=== PATIENT | female | born 1960 | race Caucasian/White ===

== ENCOUNTER 2023-10-20 14:43 | Emergency (ER) | payer MEDICARE, SELFPAY ==
[2023-10-20 14:45] VITALS: PULSE 76; RESP 18; TEMP 36.3; O2SAT 98; BMI 25.2
--- NOTE | 2023-10-20 15:54 | RAD_ITS ---
STUDY: X-RAY - RIGHT SHOULDER REASON FOR EXAM: Female, 63 years old. INJURY TECHNIQUE: 4 view(s) of the shoulder. COMPARISON: None. FINDINGS: Normal glenohumeral articulation. There is widening of the acromioclavicular joint to approximately 1.5 cm. This suggests AC joint disruption unless there has been previous surgery. Normal acromion. Normal humeral head and visualized proximal humerus. There is periarticular soft tissue calcification consistent with a calcific tendinitis. Normal visualized pulmonary apex. RAD/Shoulder min 2 Views IMPRESSION: Suggestion of AC joint disruption unless there has been previous surgery. Electronically Signed: Hayes Mancini MD at 16:05 EST ,
--- NOTE | 2023-10-20 16:31 | EDS_ITS ---
HPI History of Present Illness Chief Complaint: Upper Extremity Injury Informant: patient Onset/Context/Timing Onset: Weeks Narrative Narrative: Patient presents secondary to right shoulder pain. She fell 2 weeks ago landing on her right shoulder. She has had decreased range of motion and pain since that time. Today she bumped into a door frame and caused increased pain. She is right-hand dominant. She has had prior rotator cuff surgery on that shoulder. [facility] Medical History Anxiety Depression Diabetes Allergy/AdvReac Type Severity Reaction Status Date / Time morphine AdvReac Mild Itching Verified 10/20/23 14:45 Sulfa (Sulfonamide AdvReac Mild Rash Verified 10/20/23 14:45 Antibiotics) Family History no significant family his Surgical History H/O rotator cuff surgery Social History housing: house Smoking Status: Unknown if ever smoked ROS ROS ED Constitutional Constitutional ED: Denies chills or fever(s) ENT ENT ED: Denies rhinorrhea or sore throat Cardiovascular Cardiovascular: Denies chest pain or palpitations Respiratory/Chest Respiratory/Chest: Denies cough or dyspnea Gastrointestinal Gastrointestinal: Denies abdominal pain, nausea or vomiting Genitourinary Genitourinary ED: Denies dysuria Musculoskeletal Musculoskeletal: Reports extremity pain; Denies back pain Integumentary Denies Abrasions or rash Neurologic Neurologic: Denies headache(s) or weakness Psychiatric Psychiatric: Denies anxiety or depression Allergic/Immunologic Allergic/Immunologic ED: Denies lip swelling or urticaria EXAM Physical Exam Const Vital Signs: 10/20/23 14:45 Temperature 97.3 F L Temperature Source Temporal Pulse Rate 76 Respiratory Rate 18 Pulse Ox 98 Positive well nourished and well developed General Appearance ED: well developed HEENT Reports moist mucous membranes Neck full ROM Chest Wall inspection of chest normal and palpation of chest normal Resp normal respiratory effort and clear to auscultation bilaterally Cardio regular rate and regular rhythm GI non-tender Palpation: soft Extremity Extremity Narrative: Decreased range of motion right upper extremity. Patient has difficulty with abduction and any arm elevation over her head. With her shoulder in neutral position with her elbow at her side she is able to flex and extend her elbow without difficulty. She is strong distal pulses and normal sensation. Neuro oriented x3 Psych mental status grossly normal MDM MDM MDM Narrative Medical decision making narrative: Right shoulder x-rays were obtained per nursing protocol. Per my interpretation no evidence of fracture or dislocation. Radiology interpretation is reviewed. They feel there is a possible AC joint disruption unless there has been previous surgery. Patient has no focal tenderness to palpation over this area and has had prior shoulder surgery. Given her exam I am more concerned for rotator cuff injury which she was advised we could not see on an x-ray. She wishes to follow-up with her orthopedic doctor and Eugenie. We will give her a sling. She will continue working on exercises to keep her shoulder mobile. Return instructions given. Radiography Diagnostic Testing: Clinical Impression(s) from Imaging Studies Shoulder X-Ray 10/20/23 15:54 IMPRESSION: Suggestion of AC joint disruption unless there has been previous surgery. Electronically Signed: Hayes Mancini MD at 16:05 EST , Discharge Plan Triage Chief Complaint: Upper Extremity Injury ED Provider: Cora Adorno Dx/Rx/DC Orders Clinical Impression: Sprain of right shoulder Instructions: ED Shoulder Sprain Primary Care Provider: Surjit Heredia Referrals: Surjit Heredia MD [Primary Care Provider] - Activity Restrictions/Additional Instructions: Follow-up with your orthopedic doctor and Eugenie as discussed. Disposition Disposition: Home, Self Care
[2023-10-20 16:33] VITALS: PULSE 66; RESP 16
--- OUTSIDE RECORDS SUMMARY | 2023-10-20 17:10 | XMS RPT_ITS | CCD ---
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 Name Role Phone FAIRCHILD, COURTNEY E Unavailable Unavailable FAIRCHILD, COURTNEY E Unavailable Unavailable FAIRCHILD COURTNEY E Unavailable Unavailable JESENIA CHRISTENSEN Primary Care Unavailable GABRIELA MYLES Attending Unavailable Heredia, Reilly Primary Care Provider [phone] Reilly Heredia MD Primary Care Provider [phone] Reilly Heredia MD Primary Care Provider Reilly Heredia MD Primary Care Provider [phone] HEREDIA, REILLY Primary Care Unavailable DANIELLE CASE WORKER, KENDRICK Attending Unavailable DANIELLE CASE WORKER, KENDRICK Attending Unavailable HEREDIA, REILLY Primary Care Unavailable DANIELLE CASE WORKER, KENDRICK Attending Unavailable HEREDIA, REILLY Primary Care Unavailable HEREDIA, REILLY Primary Care Unavailable DANIELLE CASE WORKER, KENDRICK Attending Unavailable HEREDIA, REILLY Primary Care Unavailable DANIELLE CASE WORKER, KENDRICK Attending Unavailable Reilly Heredia MD Primary Care Provider [phone] KYLIE PAULINO Attending Unavailable HEREDIA, REILLY Primary Care Unavailable FERNANDO VO Attending Unavailable KYLIE PAULINO Attending Unavailable HEREDIA, REILLY Primary Care Unavailable Allergies Allergy Classification Reported Allergen(s) Allergy Type Date of Onset Reaction(s) Facility (13 sources) acetaminophen / HYDROcodone; Translations: [HYDROCODONE-ACET AMINOPHEN] Drug Allergy 04-13-20 11 Rash [facility] Repository (13 sources) morphine; Translations: [MORPHINE] Drug Allergy 04-13-20 11 Hives, Itching [facility] Repository (2 sources) Sulfonamides (Antibiotic); Translations: [SULFA (SULFONAMIDE ANTIBIOTICS)] Propensity to adverse reactions to drug (disorder) 12-22-20 11 [facility] [place] Repository (3 sources) Sulfonamides (Antibiotic) Propensity to adverse reactions to drug 06-13-20 15 [facility] [place] [place] (9 sources) Codeine Drug Allergy 08-28-20 21 [place] [facility] Work Phone: (8 sources) Sulfonamides (Antibiotic) Drug Intolerance 09-16-20 11 [facility] Medications Current Medications Medication Drug Class(es) Dates Sig (Normalized) Sig (Original) [id number] 200 actuat albuterol 0.09 mg/actuat metered dose inhaler (11 sources) beta2-Adrenergic Agonist Start: 02-15-2023 take 2 puff(s) by inhalation every six hours as needed for wheezing albuterol 108 (90 Base) MCG/ACT inhaler Indications: Bronchitis Inhale 2 puffs every 6 hours as needed for wheezing. 18 g 1 02/15/2023 Active Problems Active Problems Problem Classification Problem Date Documented Date Episodic/Chronic Anxiety disorders (11 sources) Generalized anxiety disorder; Translations: [Generalized anxiety disorder] Onset: 03-11-2015 03-11-2015 Chronic Chronic obstructive pulmonary disease and bronchiectasis (13 sources) Simple chronic bronchitis; Translations: [Simple chronic bronchitis] Onset: 07-20-2020 12-24-2020 Chronic Diabetes mellitus with complications (14 sources) Type 2 diabetes mellitus in obese; Translations: [Type 2 diabetes mellitus with other specified complication] Onset: 06-13-2015 06-19-2018 Chronic Diabetes mellitus without complication (18 sources) Type 2 diabetes mellitus; Translations: [Type II or unspecified type diabetes mellitus without mention of complication, uncontrolled] Onset: 03-11-2015 Resolved: 08-31-2016 03-11-2015 Chronic Disorders of lipid metabolism (17 sources) Hyperlipidemia; Translations: [Mixed hyperlipidemia] Onset: 03-11-2015 Resolved: 08-31-2016 08-31-2016 Chronic Esophageal disorders (10 sources) Gastroesophageal reflux disease without esophagitis; Translations: [Gastro-esophageal reflux disease without esophagitis] Onset: 01-04-2020 01-04-2020 Chronic Medical examination/evaluatio n (1 source) Encounter for other preprocedural examination; Translations: [Encounter for other preprocedural examination] Onset: 12-30-2017 Episodic Mood disorders (20 sources) Moderate major depression ; Translations: [Bipolar disorder] Onset: 03-11-2015 Resolved: 08-31-2016 06-19-2018 Chronic Other bone disease and musculoskeletal deformities (1 source) Disorder of bone; Translations: [Disorder of bone] Episodic Other endocrine disorders (4 sources) Mass of left adrenal gland; Translations: [Other specified disorders of adrenal gland] Onset: 01-18-2019 01-18-2019 Chronic Other endocrine disorders (2 sources) Other specified disorders of adrenal gland; Translations: [Other specified disorders of adrenal gland (HCC)] Onset: 07-12-2022 Chronic Other endocrine disorders (1 source) Mass of left adrenal gland; Translations: [Left adrenal mass] Onset: 01-18-2019 01-18-2019 Other liver diseases (11 sources) Steatosis of liver; Translations: [Fatty (change of) liver, not elsewhere classified] Onset: 06-13-2015 06-13-2015 Chronic Other liver diseases (3 sources) Chronic nonalcoholic liver disease; Translations: [Other specified diseases of liver] Onset: 03-11-2015 Resolved: 08-31-2016 08-31-2016 Chronic Other nervous system disorders (10 sources) Bilateral carpal tunnel syndrome; Translations: [Carpal tunnel syndrome, bilateral upper limbs] Onset: 09-08-2018 09-08-2018 Chronic Other nervous system disorders (1 source) Bilateral carpal tunnel syndrome; Translations: [Bilateral carpal tunnel syndrome] Onset: 09-08-2018 09-08-2018 Other nutritional; endocrine; and metabolic disorders (5 sources) Obesity; Translations: [Other obesity due to excess calories] Onset: 01-04-2020 01-04-2020 Chronic Other nutritional; endocrine; and metabolic disorders (5 sources) Obesity caused by energy imbalance; Translations: [Other obesity due to excess calories] Onset: 01-04-2020 07-12-2022 Chronic Other nutritional; endocrine; and metabolic disorders (2 sources) Obesity, unspecified; Translations: [Obesity, unspecified] Onset: 07-12-2022 Chronic Other screening for suspected conditions (not mental disorders or infectious disease) (1 source) Imaging of thorax abnormal; Translations: [Abnormal findings on diagnostic imaging of other specified body structures] Chronic Other skin disorders (1 source) Localized swelling, mass and lump, trunk; Translations: [Localized swelling, mass and lump, trunk] Onset: 01-10-2018 Episodic Residual codes; unclassified (12 sources) Tobacco user; Translations: [Nicotine dependence, unspecified, uncomplicated] Onset: 03-11-2015 03-11-2015 Chronic Residual codes; unclassified (1 source) Postmenopausal state; Translations: [Asymptomatic menopausal state] 04-05-2023 Episodic Substance-related disorders (9 sources) Cigarette smoker ; Translations: [Nicotine dependence, cigarettes, uncomplicated] Onset: 04-05-2023 04-05-2023 Chronic Unclassified (2 sources) Contusion of chest wall, unspecified laterality, initial encounter Onset: 01-10-2019 Unclassified (1 source) Patient encounter status; Translations: [Screening for osteoporosis] Unclassified (2 sources) Med Refill; Translations: [Med Refill] Onset: 02-15-2023 Past or Other Problems Problem Classification Problem Date Documented Date Episodic/Chronic Other and unspecified benign neoplasm (6 sources) Adrenal adenoma; Translations: [Benign neoplasm of unspecified adrenal gland] Onset: 01-18-2019 04-05-2023 Episodic Other endocrine disorders (6 sources) Disorder of adrenal gland; Translations: [Other specified disorders of adrenal gland] Onset: 03-11-2015 Resolved: 08-31-2016 04-23-2017 Chronic Other fractures (4 sources) Personal history of (healed) stress fracture; Translations: [History of stress fracture] Onset: 08-31-2016 Resolved: 06-19-2018 06-19-2018 Episodic Other hereditary and degenerative nervous system conditions (9 sources) Tardive dyskinesia; Translations: [Drug induced subacute dyskinesia] Onset: 12-09-2021 12-09-2021 Episodic Other liver diseases (3 sources) Enzyme level - finding; Translations: [Abnormal levels of other serum enzymes] Onset: 03-11-2015 Resolved: 08-31-2016 07-09-2017 Episodic Other lower respiratory disease (2 sources) Cough; Translations: [Cough] Onset: 02-15-2023 Episodic Other non-traumatic joint disorders (10 sources) Pain in left knee; Translations: [Pain in joint, lower leg] Onset: 01-13-2022 Episodic Other upper respiratory infections (2 sources) Streptococcal pharyngitis; Translations: [Streptococcal pharyngitis] Onset: 09-01-2022 Episodic Residual codes; unclassified (11 sources) Family history of cancer of colon; Translations: [Family history of malignant neoplasm of digestive organs] Onset: 07-14-2015 07-14-2015 Episodic Residual codes; unclassified (7 sources) Disturbance in sleep behavior; Translations: [Sleep disorder, unspecified] Onset: 04-05-2023 04-05-2023 Episodic Residual codes; unclassified (2 sources) Sleep disorder, unspecified; Translations: [Sleep disorder, unspecified] Onset: 04-05-2023 Episodic Residual codes; unclassified (2 sources) Asymptomatic menopausal state; Translations: [Asymptomatic menopausal state] Onset: 04-05-2023 Episodic Screening and history of mental health and substance abuse codes (7 sources) Personal history of nicotine dependence; Translations: [Personal history of tobacco use] Onset: 06-19-2018 07-12-2022 Episodic Spondylosis; intervertebral disc disorders; other back problems (9 sources) Acute back pain with sciatica; Translations: [Lumbago with sciatica, right side] Onset: 01-13-2022 01-13-2022 Episodic Substance-related disorders (5 sources) H/O: drug dependency; Translations: [Personal history of nicotine dependence] Onset: 06-19-2018 06-19-2018 Episodic Thyroid disorders (3 sources) Hypothyroidism; Translations: [Hypothyroidism, unspecified] Onset: 03-11-2015 Resolved: 08-31-2016 08-31-2016 Chronic Thyroid disorders (14 sources) Atrophy of thyroid - acquired; Translations: [Atrophy of thyroid (acquired)] Onset: 06-13-2015 06-13-2015 Episodic Results Test Name Value Interpretation Reference Range Facil ity Vital Signs Date Time Vital Sign Value Performing Clinician Clark shine 04-05-2023 10:28-0400 Body height 175.3 cm Kylie PUGADiwanee Work Phone: [facility] 04-05-2023 10:28-0400 Body mass index (BMI) [Ratio] 23.63 kg/m2 Kylie PUGADiwanee Work Phone: [facility] 04-05-2023 10:28-0400 Body weight 72.58 kg Kylie PUGADiwanee Work Phone: [facility] 04-05-2023 10:28-0400 Diastolic blood pressure 66 mm[Hg] Kylie Paulino PA-C Work Phone: [facility] 04-05-2023 10:28-0400 Heart rate 85 /min Kylie Reynaon PA-C Work Phone: [facility] 04-05-2023 10:28-0400 SaO2% (BldA) [Mass fraction] 92 % Kylie Reynaon PA-C Work Phone: [facility] 04-05-2023 10:28-0400 Systolic blood pressure 106 mm[Hg] Kylie Reynaon PA-C Work Phone: [facility] Encounters Encounter Date Encounter Type Care Provider Facility Start: 08-19-2023 Telephone encounter Kylie Hewitt jaylonon PA-C Work Phone: [facility] Central Scheduling Procedures Date Procedure Procedure Detail Performing Clinician Start: 04-05-2023 Hemoglobin glycosyla trevor a1c Kylie Reynaon PA-C Work Phone: Start: 09-01-2022 Lipid 1996 panel - S monie or Plasma Fernando Perkins 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 Start: 01-21-2022 Colonoscopy Reilly woods MD Work Phone: Start: 01-13-2022 Radiologic examinati on knee 3 views Kylie Paulino PA-C Work Phone: Start: 06-08-2019 Dxa bone density sp dy 1/> sites axial skel Reilly Heredia Work Phone: Start: 01-10-2019 Antibody screen JESENIA CHRISTENSEN Plan of Treatment Date Care Activity Detail Author Start: 04-16-2033 DTaP/Tdap/Td Vaccine s (2 - Td or Tdap) DTaP/Tdap/Td Vaccines (2 - Td or Tdap) [facility] Start: 01-22-2032 Screening for malign ant neoplasm of colon [facility] Start: 07-21-2025 Screening for malign ant neoplasm of colon [facility] Start: 2025 Pneumococcal 0-64 ye ars Vaccine (2 of 2 - PPSV23) Pneumococcal 0-64 years Vaccine (2 of 2 - PPSV23) [facility] Start: 2025 Pneumococcal 0-64 ye ars Vaccine (3 - PPSV23 or PCV20) Pneumococcal 0-64 years Vaccine (3 - PPSV23 or PCV20) [facility] Start: 2025 Pneumococcal Vaccine : Pediatrics (0 to 5 Years) and At-Risk Patients (6 to 64 Years) (3 - PPSV23 if available, else PCV20) Pneumococcal Vaccine: Pediatrics (0 to 5 Years) and At-Risk Patients (6 to 64 Years) (3 - PPSV23 if available, else PCV20) [facility] Start: 2025 Pneumococcal Vaccine : Pediatrics (0 to 5 Years) and At-Risk Patients (6 to 64 Years) (3 - PPSV23 or PCV20) Pneumococcal Vaccine: Pediatrics (0 to 5 Years) and At-Risk Patients (6 to 64 Years) (3 - PPSV23 or PCV20) [facility] Start: 05-05-2024 Medicare Advantage Annual Wellness Visit (AWV) Medicare Advantage Annual Wellness Visit (AWV) [facility] Start: 04-10-2024 End: 04-10-2024 Patient encounter procedure [facility] Start: 04-05-2024 Diabetic foot examination Diabetes: Foot Exam [facility] Start: 04-05-2024 Hemoglobin A1c measurement Diabetes: Hemoglobin A1C [facility] Start: 04-04-2024 Screening for malign ant neoplasm of cervix Cervical Cancer Screening [facility] Immunizations Immunization Date Immunization Notes Care Provider Fa cility 09-01-2022 influenza, seasonal, injectable, preservative free Fernando Perkins [facility] 09-01-2022 influenza virus vacc ine, unspecified formulation Kylie Paulino PA-C Work Phone: [facility] 09-16-2021 Pfizer SARS-CoV-2 Vaccination Fernando Perkins [facility] 01-03-2021 COVID-19, Pfizer Pur ple top, DILUTE for use, 12+ yrs, 30mcg/0.3mL dose Kylie Paulino PA-C Work Phone: [facility] Work Phone: 12-13-2020 COVID-19, Pfizer Pur ple top, DILUTE for use, 12+ yrs, 30mcg/0.3mL dose Kylie Paulino PA-C Work Phone: [facility] Work Phone: 07-16-2020 influenza, injectabl e, quadrivalent, preservative free Reilly Heredia MD Work Phone: [facility] 10-02-2019 influenza, injectabl e, quadrivalent, preservative free Reilly Heredia MD Work Phone: [facility] 06-19-2018 influenza virus vacc ine, unspecified formulation Reilly Heredia MD Work Phone: [facility] Work Phone: 06-19-2018 influenza, injectabl e, quadrivalent, contains preservative [place], [place] 06-19-2018 pneumococcal polysaccharide vaccine, 23 valent [place], [place] 09-05-2017 influenza virus vacc ine, unspecified formulation Reilly Heredia MD Work Phone: [facility] Work Phone: 09-05-2017 influenza, injectabl e, quadrivalent, contains preservative [facility] 08-31-2016 influenza, injectabl e, quadrivalent, contains preservative [facility] 08-31-2016 pneumococcal conjuga te vaccine, 13 valent [place], [place] Payers Date Payer Category Payer Medicare ANTH MEDICARE ADVANTAGE ANTHEM MEDIBLUE [id number] 2020-Present [address] [place] [address] Medicare HMO [id number] 2020 Medicare [id number] 2019 Medicaid [id number] 2018 Medicaid MEDICAID [facility] DEPT OF JOB xxxxxxxxxxxx 2018-Present [phone] [address] [place] [address] xxxxxxxxxxxx [id number] 2018 Medicaid [id number] 1960 Unknown [id number] 1960 Unknown [id number] 1960 Unknown [id number] 1960 Unknown [id number] 1960 Unknown [id number] 1960 Unknown [id number] Private Health Insurance [id number] Unknown [id number] Social History Date Type Detail Facility Start: 09-26-1979 End: 02-15-2023 Tobacco smoking status NHIS Current every day smoker [facility] Start: 09-26-1979 End: 05-27-2021 History of tobacco use Cigarette Smoker [place] Start: 04-05-2019 End: 03-31-2023 Cigarettes smoked current (pack per day) - Reported [facility] Start: 04-05-2019 End: 03-31-2023 Alcohol intake No [facility] Start: 01-18-2019 End: 12-28-2021 History SDOH Alcohol Frequency 1 [place] Start: 01-18-2019 End: 12-28-2021 History SDOH Social Connections Phone 2 [place] Start: 01-18-2019 History SDOH Social Connections Living 3 [place] Start: 01-18-2019 End: 12-09-2021 History SDOH Physical Activity DPW 0 [place] Start: 01-18-2019 End: 07-02-2021 History SDOH Financial 5 [place], [place] Start: 1960 Sex Assigned At Not on file [place] Start: 08-06-2021 End: 02-15-2023 Tobacco use and exposure Smokeless tobacco non-user [employer] Work Phone: Start: 08-06-2021 End: 09-14-2022 Alcohol intake Current non-drinker of alcohol (finding) [facility] Work Phone: Start: 12-09-2021 History SDOH Alcohol Std Drinks 98 [facility] Work Phone: Start: 01-03-2022 End: 01-13-2022 Exposure to SARS-CoV-2 (event) Not sure [facility] Start: 04-05-2023 Alcohol intake Current drinke r of alcohol (finding) [facility] Do you belong to any clubs or organizations such as orthodoxy groups, unions, fraternal or athletic groups, or school groups? No [facility] Are you now , , , , never or living with a partner? [facility] How often to you hav e a drink containing alcohol? 2-3 time sa week [facility] How many standard dr inks containing alcohol do you have on a typical day? 3 or 4 [facility] How often do you hav e 6 or more drinks on 1 occasion? Weekly [facility] How hard is it for y ou to pay for the very basics like food, housing, medical care, and heating Hard [facility] Do you feel stress - tense, restless, nervous, or anxious, or unable to sleep at night because your mind is troubled all the time - these days [OSQ] Very much [facility] (I/We) worried cheryl er (my/our) food would run out before (I/we) got money to buy more. Sometimes true [facility] In the past 12 month s, has lack of transportation kept you from medical appointments or from getting medications? No [facility] NEGATED: Highlighted rowStart: NINF History of tobacco use Passive smoker [facility] Medical Equipment Procedure Code Equipment Code Equipment Origin al Text Equipment Identifier Dates Check once a day [id number] Start: 06-21-2017 daily [id number] Start: 06-21-2017 Goals Date Patient Goal Desired Activity /State Clinical Notes 03-16-2021 to 08-22-2023 Telephone Encounter - Connie HouseKay Saturnino - 08/22/2023 10:52 AM ESTTelephone Encounter - Connie Matamoros - 08/22/2023 10:52 AM ESTTelephone Encounter - Rosetta Tila - 08/19/2023 12:26 PM EST Note Date & Type Note Facility 08-22-2023 Telephone encounter Note Noted. [facility] 08-22-2023 Miscellaneous Notes Noted. We reached out to patient to schedule her CT and Bone density. Patient does not want to schedule until she has the money to afford her co-pay. Thank you documented in this encounter [facility] 08-19-2023 Telephone encounter Note We reached out to patient to schedule her CT and Bone density. Patient does not want to schedule until she has the money to afford her co-pay. Thank you [facility] 08-19-2023 Miscellaneous Notes We reached out to patient to schedule her CT and Bone density. Patient does not want to schedule until she has the money to afford her co-pay. Thank you documented in this encounter [facility] 06-17-2023 Telephone encounter Note Mychart message sent to pt encouraging completion of labwork [facility] 06-17-2023 Miscellaneous Notes Mychart message sent to pt encouraging completion of labwork She is still due for her labs. Please ask her to complete them. Last appointment 04/05/2023 , Next appointment is Visit date 04/10/24 Last filled 06/10/22 350 tablet 3 refills Routed to provider for review. documented in this encounter [facility] 06-16-2023 Telephone encounter Note She is still due for her labs. Please ask her to complete them. [facility] 06-16-2023 Miscellaneous Notes She is still due for her labs. Please ask her to complete them. Last appointment 04/05/2023 , Next appointment is Visit date 04/10/24 Last filled 06/10/22 350 tablet 3 refills Routed to provider for review. documented in this encounter [facility] 06-13-2023 Telephone encounter Note Last appointment 04/05/2023 , Next appointment is Visit date 04/10/24 Last filled 06/10/22 350 tablet 3 refills Routed to provider for review. [facility] 04-05-2023 Evaluation + Plan note Associated Problem(s): Moderate major depression (CMS/HCC) (HCC) - Chronic and stable. - Continue Zoloft. [facility] 04-05-2023 Miscellaneous Notes Associated Problem(s): Moderate major depression (CMS/HCC) (HCC) - Chronic and stable. - Continue Zoloft. Associated Problem(s): Bipolar disorder (HCC) - Chronic and stable. - Continue Lamictal. Associated Problem(s): Diabetes mellitus type 2 in obese (CMS/HCC) (HCC) - Chronic and stable. - A1C at goal. - Continue metformin. Associated Problem(s): Simple chronic bronchitis (HCC) - Chronic and unstable. - Declining maintenance inhaler. - Advised pt to use albuterol nightly to help with wheezing. Associated Problem(s): Sleep disturbance - Chronic and unstable. - Trial of trazodone. documented in this encounter [facility] 04-05-2023 Evaluation + Plan note Associated Problem(s): Bipolar disorder (HCC) - Chronic and stable. - Continue Lamictal. [facility] 04-05-2023 Evaluation + Plan note Associated Problem(s): Diabetes mellitus type 2 in obese (CMS/HCC) (HCC) - Chronic and stable. - A1C at goal. - Continue metformin. [facility] 04-05-2023 Evaluation + Plan note Associated Problem(s): Simple chronic bronchitis (HCC) - Chronic and unstable. - Declining maintenance inhaler. - Advised pt to use albuterol nightly to help with wheezing. [facility] 04-05-2023 Evaluation + Plan note Associated Problem(s): Sleep disturbance - Chronic and unstable. - Trial of trazodone. [facility] 04-05-2023 History of Presen t illness Narrative Images from the original note were not included. [facility] [address] [facility] [address] Dept: [phone] Dept Chief Complaint: Deidre Phillips is an 62 y.o. female here for an annual wellness visit. Assessment/Plan : Problem List Items Addressed This Visit Nervous Sleep disturbance Relevant Medications traZODone (Desyrel) 50 MG tablet Respiratory Simple chronic bronchitis (HCC) Endocrine/Metabolic Hypothyroidism due to acquired atrophy of thyroid Relevant Orders TSH Diabetes mellitus type 2 in obese (CMS/HCC) (HCC) Relevant Orders Lipid panel Comprehensive metabolic panel AMB POC HEMOGLOBIN A1C (Completed) Hm Diabetes Foot Exam (Completed) Other Smoking greater than 40 pack years Relevant Orders CT lung screening low dose Bipolar disorder (HCC) Moderate major depression (CMS/HCC) (HCC) Left adrenal mass (HCC) Other Visit Diagnoses Routine general medical examination at health care facility - Primary Postmenopausal Relevant Orders DEXA bone density peripheral I have reviewed and reconciled the medication list with the patient today. Current Outpatient Medications Medication Sig Dispense Refill albuterol 108 (90 Base) MCG/ACT inhaler Inhale 2 puffs every 6 hours as needed for wheezing. 18 g 1 Austedo 6 MG tablet Take 6 mg by mouth in the morning and 6 mg before bedtime. fenofibrate (Tricor) 145 MG tablet TAKE 1 TABLET BY MOUTH DAILY 30 tablet 3 hydrOXYzine HCl (Atarax) 50 MG tablet Take 1/2-1 tablet by mouth twice a day as needed for anxiety/stress/panic lamoTRIgine (LaMICtal) 200 MG tablet Take 1 tablet by mouth in the morning and 1 tablet before bedtime. levothyroxine (Synthroid, Levoxyl) 150 MCG tablet Take 1 tablet (150 mcg) by mouth daily. 30 tablet 1 metFORMIN XR (Glucophage-XR) 500 MG 24 hr tablet Take 2 tablets by mouth in the morning and 2 tablets in the evening. Take with meals. sertraline (Zoloft) 100 MG tablet Take 200 mg by mouth in the morning. traZODone (Desyrel) 50 MG tablet Take 1 tablet (50 mg) by mouth Nightly as needed for sleep. 90 tablet 3 No current facility-administered medications for this visit. Also reviewed during this visit: The following health maintenance schedule was reviewed with the patient and provided in printed form in the after visit summary: Health Maintenance Topic Date Due HIV Screening Never done Colorectal Cancer Screening Never done MMR Vaccines (1 of 1 - Standard series) Never done Diabetes: Retinopathy Screening Never done Diabetes: Dental Exam Never done Hepatitis C Screening Never done DTaP/Tdap/Td Vaccines (1 - Tdap) Never done Hepatitis A Vaccines (1 of 2 - Risk 2-dose series) Never done Cervical Cancer Screening Never done Mammogram Never done Zoster Vaccines (1 of 2) Never done Hepatitis B Vaccines (1 of 3 - Risk 3-dose series) Never done COVID-19 Vaccine (4 - Booster for Pfizer series) 11/11/2021 Influenza Vaccine (1) 05/27/2023 Lipid Panel 09/01/2023 Depresssion Monitoring 10/01/2023 Diabetes: Foot Exam 04/05/2024 Diabetes: Hemoglobin A1C 04/05/2024 Pneumococcal Vaccine: Pediatrics (0 to 5 Years) and At-Risk Patients (6 to 64 Years) (3 - PPSV23 if available, else PCV20) 2025 HIB Vaccines Aged Out IPV Vaccines Aged Out Meningococcal Vaccine Aged Out Rotavirus Vaccines Aged Out HPV Vaccines Aged Out List of current healthcare providers: Patient Care Team: Reilly Heredia MD as PCP - General Orders Placed This Encounter Procedures DEXA bone density peripheral Standing Status: Future Standing Expiration Date: 04/05/2024 CT lung screening low dose Standing Status: Future Standing Expiration Date: 04/05/2024 Order Specific Question: Does the patient show any signs or symptoms of lung cancer? Answer: No Order Specific Question: Is this the first (baseline) CT or an annual exam? Answer: Annual [2] Order Specific Question: What is the patient's current smoking status? Answer: Current Smoker [1] Order Specific Question: What is the patient's total pack years? (must be at least 20 pack years) Answer: 40 Order Specific Question: Is there documentation of shared decision making? Answer: Yes Order Specific Question: Has the patient been occupationally exposed to agents that are carcinogens targeting the lungs? Answer: No Order Specific Question: Has the patient been exposed to a high level of radon? Answer: No [2] Lipid panel Standing Status: Future Number of Occurrences: 1 Standing Expiration Date: 04/05/2024 Order Specific Question: Has the patient been fasting for 8 hours or more? Answer: Yes Comprehensive metabolic panel Standing Status: Future Number of Occurrences: 1 Standing Expiration Date: 04/05/2024 TSH Standing Status: Future Number of Occurrences: 1 Standing Expiration Date: 04/05/2024 AMB POC HEMOGLOBIN A1C Hm Diabetes Foot Exam Subjective : Review of Systems Constitutional: Negative for activity change and appetite change. Respiratory: Negative for chest tightness and shortness of breath. Cardiovascular: Negative for chest pain and palpitations. Gastrointestinal: Negative for abdominal pain and blood in stool. Neurological: Negative for dizziness and light-headedness. Physical Exam Vitals and nursing note reviewed. Constitutional: Appearance: Normal appearance. Cardiovascular: Rate and Rhythm: Normal rate and regular rhythm. Heart sounds: Normal heart sounds. Pulmonary: Effort: Pulmonary effort is normal. Breath sounds: Normal breath sounds. Musculoskeletal: Comments: Dorsalis pedis and posterior tibial pulses are symmetric. No fissures between the toes. No open sores on the feet. Sensation intact to monofilament testing in 8 of 8 areas tested. No edema in feet. Radial pulses strong and symmetric. No edema in hands or wrists. Neurological: Mental Status: She is alert. Psychiatric: Mood and Affect: Mood normal. Behavior: Behavior normal. Thought Content: Thought content normal. Judgment: Judgment normal. Health Risk Assessment: General: General In general, how would you say your health is?: (P) Good In the past 7 days, have you experienced any of the following: New or Increased Pain, New or Increased Fatigue, Loneliness, Social Isolation, Stress or Anger?: (!) (P) Yes Do you get the social and emotional suppport you need?: Yes Health Habits/Nutrition: Health Habits / Nutrition On average, how many days per week do you engage in moderate to strenous exercise (like a brisk walk)?: (!) 0 days On average, how man minutes do you engage in exercise at this level?: (!) 0 min Have you lost any weight without trying in the past 3 months? : Yes (20 lbs lost since last time in) Have you seen the dentist within the past year?: (!) No Interventions: Inadequate physical activity: Educational materials provided to promote increased physical activity , Educational materials for healthy, well balanced diet provided, and Dental exam overdue: Patient encouraged to make appointment with his / her dentist Hearing/ Vision: Hearing / Vision Do you or your family notice any trouble with your hearing that hasn't been managed with hearing aids?: No Do you have difficulty driving, watching TV, or doing any of your daily activities because of your eyesight?: No Have you had an eye exam within the past year?: (!) No No results found. Interventions: Vision concerns: Patient encouraged to make appointment with his / her medical administrative specialist Safety: Safety Do you have a working smoke detector?: Yes Do you have any tripping hazards - loose or unsecured carpets or rugs?: No Do you have any tripping hazards - clutter in doorways, halls, or stairs?: No Do you have either shower bars, grab bars, non-slip mats or non-slip surfaces in your shower or bathtub? : Yes Do all your stairways have a railing or banister? : Not Applicable Do you fasten your seatbelt when you are in a car?: Yes ADL: ADL In the past 7 days, did you need help from others to perform any of the following everyday activities: Eating, dressing, grooming,bathing, toileting, or walking / balance? : (P) No In the past 7 days, did you need help from others to take care of any of the following: laundry, housekeeping, banking / finances,shopping, telephone use, food preparation, transportation, or taking medications? : (P) No Living Will: Living Will Do you have a living will?: No Interventions: Cognitive: Cognitive Screening: Mini-Cog Clock Drawing Test (CDT): 2 Words Recalled: 3 Total Score: 5 Total Score Interpretation: Normal Mini-Cog Interventions: Fall Risk: Fall Risk One or more falls in the last year:: Yes (one time, moving patio table, scraped knee) Advised to use a cane or walker to get around safely:: No Feels unsteady when walking:: No Steadies self on furniture while walking at home:: No Worried about falling:: No Interventions: Depression Screening: Over the past 2 weeks, how often have you been bothered by any of the following problems? Little interest or pleasure in doing things: Several days Feeling down, depressed, or hopeless: Several days Patient Health Questionnaire-2 Score: 2 If you checked off any problems on this questionnaire so far, How difficult have these problems made it for you to do your work, take care of things at home, or get along with other people?: Not difficult at all [place] Suicide Severity Rating Scale (Screener/Recent Self-Report) 1. Wish to be (Past 1 Month): No 2. Non-Specific Active Suicidal Thoughts (Past 1 Month): No 6. Suicidal Behavior (Lifetime): No Calculated C-SSRS Risk Score (Lifetime/Recent): No Risk Indicated Interventions: Tobacco Use: Social History Tobacco Use Smoking Status Every Day Packs/day: 1.00 Types: Cigarettes Start date: 09/26/1979 Last attempt to quit: 05/27/2021 Years since quittin.8 Passive exposure: Never Smokeless Tobacco Never Alcohol Use: Audit Alcohol Screening Q1: How often do you have a drink containing alcohol?: 2-3 times a week Q2: How many drinks containing alcohol do you have on a typical day when you are drinking?: 3 or 4 Q3: How often do you have six or more drinks on one occasion?: Weekly Audit-C Score: 7 Skip to questions 9-10?: 0 Interventions: Objective : BP 106/66 (BP Location: Left arm, Patient Position: Sitting, BP Cuff Size: Adult) Pulse 85 Ht 5' 9 (1.753 m) Wt 160 lb (72.6 kg) SpO2 92% BMI 23.63 kg/m No results found. documented in this encounter [facility] 04-05-2023 Instructions Kylie Paulino PA-C - 04/05/2023 10:20 AM EDT Personalized Preventative Plan for Deidre Phillips - 04/05/2023 Medicare offers a range of preventative health benefits. Some of the tests and screenings are paid in full while others may be subject to a deductible, co-insurance, and / or copay. Some of these benefits include a comprehensive review of your medical history including lifestyle, illnesses that may run in your family, and various assessments and screenings as appropriate. After reviewing your medical record and screening and assessments performed today, your provider may have ordered immunizations, labs, imaging, and / or referrals for you. A list of these orders (if applicable) as well as your Preventative Care list are included within your After Visit Summary for your review. Other Preventative Recommendations: A preventive eye exam by an medical administrative specialist is recommended every 1-2 years to screen for glaucoma, cataracts, macular degeneration, and other eye disorders. A preventive dental visit is recommended every 6 months. Try to get at least 150 minutes of exercise per week or 10,000 steps per day on a pedometer. You need 1200-1500mg of calcium and [id number] international units of vitamin D per day. It is possible to meet your calcium requirement with diet alone, but a vitamin D supplement is usually necessary to meet this goal. When exposed to the sun, use a sunscreen that protects against both UVA and UVB radiation with an SPF of 30 or greater. Reapply every 2-3 hours or after sweating, drying off with a towel, or swimming. Always wear a seat belt when traveling in a car. Always wear a helmet when riding a bicycle or a motorcycle documented in this encounter [facility] 01-27-2023 Telephone encounter Note Refilled requested medication(s). [facility] 01-27-2023 Miscellaneous Notes Refilled requested medication(s). documented in this encounter [facility] 12-10-2022 Telephone encounter Note noted [facility] 12-10-2022 Miscellaneous Notes noted [facility] 90 day supply of Metformin. documented in this encounter [facility] 12-09-2022 Telephone encounter Note We received a fax from [facility] requesting a 90 day supply of Metformin. [facility] 09-04-2021 Note HNO ID: [id number] Author: Yves Nelson MD Service: ? Author Type: Physician Type: Progress Notes Filed: 09/04/2021 11:19 AM Note Text: ASSESSMENT/PLAN: 1. Status post cataract extraction and insertion of intraocular lens of right eye - ICD9: V45.61, V43.1, ICD10: Z98.41, Z96.1 (primary diagnosis) - Intraocular lens in good position, Right eye Current Ophthalmic Meds keTORolac (ACULAR) 0.5 % ophthalmic solution Use 1 Drop in the right eye four times daily. prednisoLONE acetate (PRED FORTE) 1 % ophthalmic suspension Use 1 Drop in the left eye three times daily. Continue artificial tears three times daily in both eyes 2. Status post cataract extraction and insertion of intraocular lens of left eye - ICD9: V45.61, V43.1, ICD10: Z98.42, Z96.1 - Intraocular lens in good position, Left eye Current Ophthalmic Meds keTORolac (ACULAR) 0.5 % ophthalmic solution Use 1 Drop in the left eye three times daily. prednisoLONE acetate (PRED FORTE) 1 % ophthalmic suspension Use 1 Drop in the left eye three times daily. Continue artificial tears three times daily in both eyes 3. Regular astigmatism, bilateral - ICD9: 367.21, ICD10: H52.223 - Recommended TORIC Intraocular lens at time of cataract surgery but patient elected to have basic monofocal lens and understands the need for glasses for all distances post-operatively 4. Type 2 diabetes mellitus without retinopathy (HCC) - ICD9: 250.00, ICD10: E11.9 - Please keep your blood sugar under good control to minimize risk of ocular complications from diabetes. Consult Dr. Bhat for refraction and glasses, per patient request Return to clinic in 1 year for Dilated fundus exam Yves Nelson MD I have confirmed and edited as necessary the relevant ophthalmic history, review of systems, surgical history, and ophthalmological examination findings as obtained by the ophthalmic technical staff. I have seen and examined Deidre Phillips. I have discussed the examination findings, diagnosis, and treatment options with Deidre Phillips and/or her family. I have also reviewed and agree with the assessment and plan as stated above and agree with all its relevant components. I gave the patient the opportunity to ask questions about the findings, diagnosis, and treatment options. [facility] 08-29-2021 Note HNO ID: [id number] Author: Yves Nelson MD Service: ? Author Type: Physician Type: Progress Notes Filed: 08/29/2021 10:10 AM Note Text: ASSESSMENT/PLAN: 1. Status post cataract extraction and insertion of intraocular lens of right eye - ICD9: V45.61, V43.1, ICD10: Z98.41, Z96.1 (primary diagnosis) 2. Status post cataract extraction and insertion of intraocular lens of left eye - ICD9: V45.61, V43.1, ICD10: Z98.42, Z96.1 Current Ophthalmic Meds keTORolac (ACULAR) 0.5 % ophthalmic solution Use 1 Drop in the left eye three times daily. keTORolac (ACULAR) 0.5 % ophthalmic solution Use 1 Drop in the right eye four times daily. prednisoLONE acetate (PRED FORTE) 1 % ophthalmic suspension Use 1 Drop in the left eye three times daily. prednisoLONE acetate (PRED FORTE, ECONOPRED PLUS) 1 % ophthalmic suspension Use 1 Drop in the right eye four times daily. valACYclovir (VALTREX) 500 mg tablet Systane Complete Artificial Tears - Use 1 Drop into both eyes three times a day. 3. Regular astigmatism of right eye - ICD9: 367.21, ICD10: H52.221 - Monitor with Dr. Girish Nelson MD I have confirmed and edited as necessary the relevant ophthalmic history, review of systems, surgical history, and ophthalmological examination findings as obtained by the ophthalmic technical staff. I have seen and examined Deidre Phillips. I have discussed the examination findings, diagnosis, and treatment options with Deidre Phillips and/or her family. I have also reviewed and agree with the assessment and plan as stated above and agree with all its relevant components. I gave the patient the opportunity to ask questions about the findings, diagnosis, and treatment options. [facility] 08-22-2021 Note HNO ID: [id number] Author: Yves Nelson MD Service: ? Author Type: Physician Type: Progress Notes Filed: 08/22/2021 11:48 AM Note Text: ASSESSMENT/PLAN: 1. Combined forms of age-related cataract of right eye - ICD9: 366.19, ICD10: H25.811 (primary diagnosis) PHYSICAL EXAM: Vital Signs: Blood pressure 118/58, pulse 83. Respiratory: Normal breath sounds, no wheezing. CARD: Normal heart sounds 1 AND 2, normal sinus rhythm. Cataract Presurgical Documentation Cataract: Right eye Patient reported symptoms: Associated symptoms Positive for: Blurred Vision, difficulty with driving, difficulty with reading, difficulty with watching television, dryness, glare Negative for: Itching, flashes, floaters, tearing, halos, burning Current Visual Acuity: Right Eye Distance CC 20/50 Best Corrected Vision Right Eye 20/40+ Visual Function: Deidre Phillips states that the decline in vision from the cataract impedes the ability to read, watch television as well as other activities of daily living. Deidre Phillips has confirmed that she is no longer able to function adequately on a day-to-day basis because of her current visual condition. Further, it is my medical opinion that the cataract is the primary cause, or at least a significantly contributory cause of her visual dysfunction. With uncomplicated cataract surgery and lens implantation, it is my expectation that her visual function and quality of life will improve, significantly. The risks, benefits, alternatives, personnel and complications of cataract surgery with lens implantation were discussed with Deidre Phillips in detail. she appeared to understand and asked that I proceed with plans for surgery. Patient wishes to have traditional cataract surgery with basic Intraocular lens right eye 08/28/2021 Patient wishes to have cataract surgery with the option stated above. Patient understands that an intraocular lens implant does not necessarily replace the need for glasses. Patient understands that it is impossible for the surgeon to inform him/her of every possible complication that may occur. The surgeon has answered all of the patient's questions. Patient understands that if he/she has a mature or dense cataract, pseudoexfoliation cataract, or history of use of Flomax, he/she may require the use of Maluyugin Ring and/or Vision Blue during surgery. Patient understands the risks, benefits, and alternatives to surgery. Systane Complete Artificial Tears - Use 1 Drop into both eyes three times a day. 2. Regular astigmatism of right eye - ICD9: 367.21, ICD10: H52.221 Patient understands the need for glasses for all near and intermediate vision including reading and computer work. He/she declines monovision. He/she was offered a Toric Intraocular lens to correct astigmatism, but he/she declines the Toric Intraocular lens. Patient understands that he/she will need glasses to correct residual astigmatism at all distances after cataract surgery. 3. Type 2 diabetes mellitus without retinopathy (HCC) - ICD9: 250.00, ICD10: E11.9 Please keep your blood sugar under good control to minimize risk of ocular complications from diabetes. 4. Status post cataract extraction and insertion of intraocular lens of left eye - ICD9: V45.61, V43.1, ICD10: Z98.42, Z96.1 Continue post op mediations as directed: Current Ophthalmic Meds keTORolac (ACULAR) 0.5 % ophthalmic solution Use 1 Drop in the left eye four times daily. prednisoLONE acetate (PRED FORTE) 1 % ophthalmic suspension Use 1 Drop in the left eye four times daily. 5. Bipolar affective disorder, remission status unspecified (HCC) - ICD9: 296.80, ICD10: F31.9 6. Tardive dyskinesia - ICD9: 333.85, ICD10: G24.01 Yves Nelson MD I have confirmed and edited as necessary the relevant ophthalmic history, review of systems, surgical history, and ophthalmological examination findings as obtained by the ophthalmic technical staff. I have seen and examined Deidre Phillips. I have discussed the examination findings, diagnosis, and treatment options with Deidre Phillips and/or her family. I have also reviewed and agree with the assessment and plan as stated above and agree with all its relevant components. I gave the patient the opportunity to ask questions about the findings, diagnosis, and treatment options. [facility] 08-15-2021 Note HNO ID: [id number] Author: Yves Nelson MD Service: ? Author Type: Physician Type: Progress Notes Filed: 08/15/2021 10:05 AM Note Text: ASSESSMENT/PLAN: 1. Status post cataract extraction and insertion of intraocular lens of left eye - ICD9: V45.61, V43.1, ICD10: Z98.42, Z96.1 (primary diagnosis) Current Ophthalmic Meds keTORolac (ACULAR) 0.5 % ophthalmic solution Use 1 Drop in the left eye four times daily. prednisoLONE acetate (PRED FORTE) 1 % ophthalmic suspension Use 1 Drop in the left eye four times daily. valACYclovir (VALTREX) 500 mg tablet 2. Combined forms of age-related cataract of right eye - ICD9: 366.19, ICD10: H25.811 3. Regular astigmatism of right eye - ICD9: 367.21, ICD10: H52.221 -Plan traditional cataract surgery with basic monofocal lens of the right eye 09/16/2021 at [facility]. -Patient declines astigmatism correction combination with cataract surgery of the right eye. Patient aware she will need glasses post operatively to achieve the best optimal distance vision. 3. Type 2 diabetes mellitus without retinopathy (HCC) - ICD9: 250.00, ICD10: E11.9 -Please keep your blood sugar under good control to minimize risk of ocular complications from diabetes. 4. Acquired hypothyroidism - ICD9: 244.9, ICD10: E03.9 5. Tardive dyskinesia - ICD9: 333.85, ICD10: G24.01 -Continue care with your primary care provider as directed Yves Nelson MD I have confirmed and edited as necessary the relevant ophthalmic history, review of systems, surgical history, and ophthalmological examination findings as obtained by the ophthalmic technical staff. I have seen and examined Deidre Phillips. I have discussed the examination findings, diagnosis, and treatment options with Deidre Phillips and/or her family. I have also reviewed and agree with the assessment and plan as stated above and agree with all its relevant components. I gave the patient the opportunity to ask questions about the findings, diagnosis, and treatment options. [facility] 08-05-2021 Note HNO ID: [id number] Author: Yves Nelson MD Service: ? Author Type: Physician Type: Progress Notes Filed: 08/05/2021 11:23 AM Note Text: ASSESSMENT/PLAN: 1. Combined forms of age-related cataract of left eye - ICD9: 366.19, ICD10: H25.812 (primary diagnosis) Cataract Presurgical Documentation Cataract: Left eye (OS) Patient reported symptoms: Associated symptoms Positive for: Blurred Vision, decreased vision, floaters, difficulty with reading, difficulty with watching television, dryness, halos, glare Negative for: Eye Redness, foreign body sensation, flashes, tearing Current Visual Acuity: Right Eye Distance CC 20/40 Left Eye Distance CC 20/50 Glare Testing: Right Eye Medium 20/60 Left Eye Medium 20/80 Visual Function: Deidre Phillips states that the decline in vision from the cataract impedes the ability to read and watch television as well as other activities of daily living. Deidre Phillips has confirmed that she is no longer able to function adequately on a day-to-day basis because of her current visual condition. Further, it is my medical opinion that the cataract is the primary cause, or at least a significantly contributory cause of her visual dysfunction. With uncomplicated cataract surgery and lens implantation, it is my expectation that her visual function and quality of life will improve, significantly. The risks, benefits, alternatives, personnel and complications of cataract surgery with lens implantation were discussed with Deidre Phillips in detail. she appeared to understand and asked that I proceed with plans for surgery. PHYSICAL EXAM: Vital Signs: Blood pressure 118/58, pulse 83. Respiratory: Normal breath sounds, no wheezing. CARD: Normal heart sounds 1 AND 2, normal sinus rhythm. Patient wishes to have traditional cataract surgery with basic Intraocular lens - Left eye on 08/14/2021 at [facility]. Patient wishes to have cataract surgery with the option stated above. Patient understands that an intraocular lens implant does not necessarily replace the need for glasses. Patient understands that it is impossible for the surgeon to inform him/her of every possible complication that may occur. The surgeon has answered all of the patient's questions. Patient understands that if he/she has a mature or dense cataract, pseudoexfoliation cataract, or history of use of Flomax, he/she may require the use of Maluyugin Ring and/or Vision Blue during surgery. Patient understands the risks, benefits, and alternatives to surgery. Continue Systane Complete Artificial Tears - Use 1 Drop into both eyes three times a day. Patient to bring the following medications to surgery, unopened: Current Ophthalmic Meds keTORolac (ACULAR) 0.5 % ophthalmic solution Starting on 08/14/2021. Use 1 Drop in the left eye four times daily. prednisoLONE acetate (PRED FORTE) 1 % ophthalmic suspension Starting on 08/14/2021. Use 1 Drop in the left eye four times daily. valACYclovir (VALTREX) 500 mg tablet 2. Combined forms of age-related cataract of right eye - ICD9: 366.19, ICD10: H25.811 Plan cataract surgery in Right eye once Left eye is stable 3. Type 2 diabetes mellitus without retinopathy (HCC) - ICD9: 250.00, ICD10: E11.9 Please keep your blood sugar under good control to minimize risk of ocular complications from diabetes. 4. Acquired hypothyroidism - ICD9: 244.9, ICD10: E03.9 5. Mild intermittent asthma, unspecified whether complicated - ICD9: 493.90, ICD10: J45.20 6. Tardive dyskinesia - ICD9: 333.85, ICD10: G24.01 Manage care with primary care physician Yves Nelson MD I have confirmed and edited as necessary the relevant ophthalmic history, review of systems, surgical history, and ophthalmological examination findings as obtained by the ophthalmic technical staff. I have seen and examined Deidre Phillips. I have discussed the examination findings, diagnosis, and treatment options with Deidre Phillips and/or her family. I have also reviewed and agree with the assessment and plan as stated above and agree with all its relevant components. I gave the patient the opportunity to ask questions about the findings, diagnosis, and treatment options. [facility] 06-29-2021 Note HNO ID: [id number] Author: Yves Nelson MD Service: ? Author Type: Physician Type: Progress Notes Filed: 06/29/2021 2:50 PM Note Text: ASSESSMENT/PLAN: 1. Combined forms of age-related cataract of left eye - ICD9: 366.19, ICD10: H25.812 (primary diagnosis) Cataract Presurgical Documentation Cataract: Left eye (OS) Patient reported symptoms: Associated symptoms Positive for: Blurred Vision, floaters, difficulty with reading, difficulty with watching television, halos, glare, starbursts Negative for: Eye Redness, foreign body sensation, decreased vision, tearing Current Visual Acuity: Right Eye Distance CC 20/40 Left Eye Distance CC 20/50 Visual Function: Deidre Phillips states that the decline in vision from the cataract impedes the ability to read and watch television as well as other activities of daily living. Deidre Phillips has confirmed that she is no longer able to function adequately on a day-to-day basis because of her current visual condition. Further, it is my medical opinion that the cataract is the primary cause, or at least a significantly contributory cause of her visual dysfunction. With uncomplicated cataract surgery and lens implantation, it is my expectation that her visual function and quality of life will improve, significantly. The risks, benefits, alternatives, personnel and complications of cataract surgery with lens implantation were discussed with Deidre Phillips in detail. she appeared to understand and asked that I proceed with plans for surgery. Patient wishes to have traditional cataract surgery with basic Intraocular lens - Left eye on 07/24/2021 at [facility]. Patient wishes to have cataract surgery with the option stated above. Patient understands that an intraocular lens implant does not necessarily replace the need for glasses. Patient understands that it is impossible for the surgeon to inform him/her of every possible complication that may occur. The surgeon has answered all of the patient's questions. Patient understands that if he/she has a mature or dense cataract, pseudoexfoliation cataract, or history of use of Flomax, he/she may require the use of Maluyugin Ring and/or Vision Blue during surgery. Patient understands the risks, benefits, and alternatives to surgery. Continue: Systane Complete Artificial Tears - Use 1 Drop into both eyes three times a day. Patient to see Reilly Heredia for complete physical, BMP, EKG and medical clearance prior to cataract surgery 2. Combined forms of age-related cataract of right eye - ICD9: 366.19, ICD10: H25.811 Plan cataract surgery in Right eye once Left eye is stable 3. Regular astigmatism, bilateral - ICD9: 367.21, ICD10: H52.223 Patient educated on TORIC Intraocular lens. Patient declines TORIC Intraocular lens at this time and understands the need for glasses for all distances post-cataract surgery 4. Type 2 diabetes mellitus without retinopathy (HCC) - ICD9: 250.00, ICD10: E11.9 Please keep your blood sugar under good control to minimize risk of ocular complications from diabetes. 5. Acquired hypothyroidism - ICD9: 244.9, ICD10: E03.9 6. Mild intermittent asthma, unspecified whether complicated - ICD9: 493.90, ICD10: J45.20 7. Tardive dyskinesia - ICD9: 333.85, ICD10: G24.01 Continue care with primary care physician Yves Nelson MD I have confirmed and edited as necessary the relevant ophthalmic history, review of systems, surgical history, and ophthalmological examination findings as obtained by the ophthalmic technical staff. I have seen and examined Deidre Phillips. I have discussed the examination findings, diagnosis, and treatment options with Deidre Phillips and/or her family. I have also reviewed and agree with the assessment and plan as stated above and agree with all its relevant components. I gave the patient the opportunity to ask questions about the findings, diagnosis, and treatment options. [facility] 05-16-2021 Note HNO ID: [id number] Author: Keith Byrnes APRN.CASE WORKER Service: ? Author Type: Nurse Practitioner Type: Progress Notes Filed: 05/16/2021 11:45 AM Note Text: Subjective HPI HPI Deidre Phillips is a 60 year old female who presents today for covid test required for travel. Denies any symptoms today. Hx of emphysema/smoker. .Patient presents with: Exposure: covid test needed for travel PAST MEDICAL HISTORY Diagnosis Date - Bipolar disorder (HCC) 03/11/2015 - Diabetes (HCC) - Fatty liver 06/13/2015 - High cholesterol - Tardive dyskinesia - Thyroid disorder PAST SURGICAL HISTORY Procedure Laterality Date - SECTION HX 1987 - CYST EXCISION 02/03/2017 Excision Right Back Lipoma, - CYST EXCISION Right 1975 - PAST SURGICAL HISTORY OF 01/10/2018 Excision Back Mass, - ROTATOR CUFF REPAIR Left 2010, 2013 - ROTATOR CUFF REPAIR Right 2010 - TONSILLECTOMY HX 1987 ALLERGIES Morphine, Sulfa (Sulfonamide Antibiotics), and Vicodin [Hydrocodone-Acetaminophen] MEDICATIONS AUSTEDO 6 mg tab Take 6 mg by mouth once daily. metFORMIN (GLUCOPHAGE) 500 mg tablet Take 500 mg by mouth daily with breakfast. nystatin (MYCOSTATIN) 100,000 unit/mL susp Take 5 mL by mouth four times daily. lidocaine viscous (LIDOCAINE VISCOUS) 2 % solution Take 5 mL by mouth as needed. omeprazole (PRILOSEC) 20 mg capsule Take 20 mg by mouth once daily. Fenofibrate 40 mg tab Take 1 tablet by mouth once daily. sertraline (ZOLOFT) 100 mg tablet Take 100 mg by mouth once daily. glimepiride (AMARYL) 4 mg tablet Take 4 mg by mouth daily with breakfast. ALBUTEROL INHALATION Inhale 1 Inhalation as instructed as needed. LORazepam (ATIVAN) 0.5 mg tab Take by mouth three times daily as needed. Levothyroxine 100 mcg cap Take 100 mcg by mouth once daily. pravastatin 20 mg tablet Take 20 mg by mouth once daily. lisinopril 5 mg tablet Take 5 mg by mouth once daily. valACYclovir (VALTREX) 500 mg tablet Take 1,000 mg by mouth three times daily. aspirin 81 mg chewable tablet Take 81 mg by mouth once daily. ibuprofen (MOTRIN) 400 mg tablet Take 400 mg by mouth every 6 hours as needed. ARIPiprazole (ABILIFY) 5 mg tablet Take 20 mg by mouth once daily. lamoTRIgine 150 mg tablet Take 150 mg by mouth twice daily. zolpidem 10 mg tab Take by mouth at bedtime as needed. FAMILY HISTORY Problem Relation Age of Onset - Heart Mother - Colon Cancer Father - Ovarian cancer Sister - No Ocular Disease Other Social History Tobacco Use - Smoking status: Current Every Day Smoker Packs/day: 1.00 Types: Cigarettes Start date: 12/30/1974 - Smokeless tobacco: Never Used - Tobacco comment: since age 18 yrs Substance Use Topics - Alcohol use: No - Drug use: No Review of Systems Constitutional: Negative for fever. HENT: Negative for congestion, ear pain, nosebleeds and sore throat. Respiratory: Negative for cough, shortness of breath and wheezing. Musculoskeletal: Negative for neck pain. Objective Physical Exam Constitutional: General: She is not in acute distress. Appearance: She is not toxic-appearing or diaphoretic. HENT: Head: Normocephalic and atraumatic. Cardiovascular: Rate and Rhythm: Normal rate and regular rhythm. Heart sounds: Normal heart sounds, S1 normal and S2 normal. Pulmonary: Effort: Pulmonary effort is normal. Breath sounds: Examination of the right-lower field reveals decreased breath sounds. Examination of the left-lower field reveals decreased breath sounds. Decreased breath sounds and wheezing (fine, scattered) present. No rhonchi or rales. Lymphadenopathy: Cervical: No cervical adenopathy. Right cervical: No superficial cervical adenopathy. Left cervical: No superficial cervical adenopathy. Neurological: Mental Status: She is alert and oriented to person, place, and time. Gait: Gait is intact. ASSESSMENT/PLAN: 1. Encounter for screening laboratory testing for COVID-19 virus in asymptomatic patient - ICD9: V01.79, ICD10: Z20.822 Test obtained, patient is signed up for [employer]. - ASYMPTOMATIC ELECTIVE COVID-19 Keith Byrnes APRN.[facility] 03-16-2021 Note HNO ID: [id number] Author: Yves Nelson MD Service: ? Author Type: Physician Type: Progress Notes Filed: 03/16/2021 10:23 AM Note Text: ASSESSMENT/PLAN: 1. Combined forms of age-related cataract of left eye - ICD9: 366.19, ICD10: H25.812 (primary diagnosis) 2. Regular astigmatism of left eye - ICD9: 367.21, ICD10: H52.222 - OCT MACULA CIRRUS OU (BOTH EYES) - IOL BIOMETRY W/ IOL CALC OU (BOTH EYES) Patient was educated on Toric Intraocular Lens Implants. Start: Systane Complete solution instill 1 drop 3 times daily Both Eyes. Patient will be going to [place] and returning in May. Recommended patient to see Dr. Heredia for surgical clearance before proceeding with cataract surgery. 3. Combined forms of age-related cataract of right eye - ICD9: 366.19, ICD10: H25.811 4. Regular astigmatism of right eye - ICD9: 367.21, ICD10: H52.221 Patient was educated on Toric Intraocular Lens Implants. 5. Type 2 diabetes mellitus without retinopathy (HCC) - ICD9: 250.00, ICD10: E11.9 Please keep your blood sugar under good control to minimize risk of ocular complications from diabetes. Continue to monitor with primary care physician. 6. Acquired hypothyroidism - ICD9: 244.9, ICD10: E03.9 Continue to monitor with primary care physician. 7. Mild intermittent asthma, unspecified whether complicated - ICD9: 493.90, ICD10: J45.20 Continue to monitor with primary care physician. 8. Tardive dyskinesia - ICD9: 333.85, ICD10: G24.01 Continue to monitor with primary care physician. Yves Nelson MD I have confirmed and edited as necessary the relevant ophthalmic history, review of systems, surgical history, and ophthalmological examination findings as obtained by the ophthalmic technical staff. I have seen and examined Deidre Phillips. I have discussed the examination findings, diagnosis, and treatment options with Deidre Phillips and/or her family. I have also reviewed and agree with the assessment and plan as stated above and agree with all its relevant components. I gave the patient the opportunity to ask questions about the findings, diagnosis, and treatment options. [facility] documented in this encounter [facility] Work Phone: Evaluation note* Diagnosis Acute pain of left knee documented in this encounter [facility] Work Phone: Evaluation note* Diagnosis Type 2 diabetes mellitus without complications (CMS/HCC) (HCC) [facility]* Diagnosis Routine general medical examination at health care facility- Primary Routine general medical examination at a health care facility Diabetes mellitus type 2 in obese (CMS/HCC) (HCC) Type II or unspecified type diabetes mellitus without mention of complication, not stated as uncontrolled Simple chronic bronchitis (HCC) Simple chronic bronchitis Bipolar affective disorder, remission status unspecified (HCC) Hypothyroidism due to acquired atrophy of thyroid Moderate major depression (CMS/HCC) (HCC) Major depressive disorder, single episode, moderate Smoking greater than 40 pack years Sleep disturbance Unspecified sleep disturbance Postmenopausal Asymptomatic postmenopausal status (age-related) (natural) [facility]* Diagnosis Type 2 diabetes mellitus with other specified complication (HCC) documented in this encounter [facility] HealthEvaluation note* Diagnosis Type 2 diabetes mellitus with other specified complication (HCC) documented in this encounter [facility] Health Summary Purpose Family History No Family History Records FoundNo Family History Records FoundNo Family History Records FoundNo Family History Records FoundNo Family History Records FoundNo Family History Records FoundNo Family History Records FoundNo Family History Records Found Advance Directives No Advanced Directives Records FoundDocuments on File Type Date Recorded 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 Advance Directives and Living Will Power of Melter Clerk Documents on File Type Date Recorded 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 ACP-Advance Directive ACP-Power of Melter Clerk Reason for Referral Status Reason Specialty Diagnoses / Procedures Referred By Contact Referred To Contact Authorized Radiology Diagnoses History of stress fracture Personal history of nicotine dependence Tobacco use disorder Screening for osteoporosis Disorder of bone Procedures DEXA Bone Density Axial Skeleton Reilly Heredia MD [facility] [address] [place] [phone] Specialty Diagnoses / Procedures Referred By Contac t Referred To Contact Radiology Diagnoses Smoking greater than [address] lung screening low dose Kylie Paulino PA-C [facility] [address] [place] [address] Referral ID Status Reason Start Date Expiration Date V isits Requested Visits Authorized [id number] Pending Review 04/05/2023 10/02/2023 1 1 Assessments Diagnosis History of stress fracture Personal history of stress fracture Personal history of nicotine dependence Personal history of tobacco use, presenting hazards to health Tobacco use disorder Screening for osteoporosis Special screening for osteoporosis Disorder of bone Disorder of bone and cartilage, unspecified Additional Source Comments INFORMATION SOURCE (unrecogn ized section and content) DATE CREATED AUTHOR AUTHOR'S ORGANIZ ATION 01/11/2019 [facility] DATE CREATED AUTHOR AUTHOR'S ORGANIZ ATION 01/14/2022 [facility] DATE CREATED AUTHOR AUTHOR'S ORGANIZ ATION 01/27/2022 [facility] DATE CREATED AUTHOR AUTHOR'S ORGANIZ ATION 01/27/2022 [facility] DATE CREATED AUTHOR AUTHOR'S ORGANIZ ATION 07/15/2023 [facility] DATE CREATED AUTHOR AUTHOR'S ORGANIZ ATION 07/19/2023 [facility] DATE CREATED AUTHOR AUTHOR'S ORGANIZ ATION 08/23/2023 [facility] Care Teams (unrecognized sec tion and content) 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 [place], [place] [phone] PCP - General 09/29/18 Waterproof Bag Cutting Machine Operator Relationship Specialty Start Date End Date Reilly Heredia MD 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 [place], [place] [phone] PCP - General 09/29/18 Waterproof Bag Cutting Machine Operator Relationship Specialty Start Date End Date Reilly Heredia MD 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 Bag Cutting Machine Operator Relationship Specialty Start Date End Date Reilly Heredia MD [facility] [address] [phone] PCP - General 09/29/18 Reason for Visit (unrecogniz ed section and content) Reason Comments Med Refill Reason Comments Insomnia 3-4 hours is all she gets Rib Injury Pulled a muscle unde r right breast Medicare Annual Wellness Visit Subsequen t Not fasting , no refills needed per Pt Reason Onset Date Comments Scheduling 08/19/2023 FOR RECORDS PERTAINING TO PATIENTS WHO ARE OR HAVE BEEN ENROLLED IN A CHEMICAL DEPENDENCY/SUBSTANCEABUSE PROGRAM, SOME INFORMATION MAY BE OMITTED. This clinical summary was aggregated from multiple sources. Caution should be exercised in using it in the provision of clinical care. This summary normalizes information from multiple sources, and as a consequence, information in this document may materially change the coding, format and clinical context of patient data. In addition, data may be omitted in some cases. CLINICAL DECISIONS SHOULD BE BASED ON THE PRIMARY CLINICAL RECORDS. [employer] [facility]. provides no warranty or guarantee of the accuracy or completeness of information in this document.
== END 2023-10-20 17:00 | disposition home or self-care (01) ==
PROVIDERS: Emergency Provider Emergency Medicine; PCP Student in an Organized Health Care Education/Training Program; Visit Provider Emergency Medicine
DX: S43.401A Unspecified sprain of right shoulder joint, initial encounter (principal); E11.9 Type 2 diabetes mellitus without complications; W22.09XA Striking against other stationary object, initial encounter
CPT/HCPCS: 73030; 99283